=== PATIENT | male | born 1955 | race Hispanic/Latino ===

== ENCOUNTER 2019-07-19 16:30 | Inpatient (IN) | payer MEDICAID, OTHER ==
[~2019-07-19] VITALS: Ht 167.6 cm; Wt 45.7 kg
[2019-07-19 17:27] LABS: BASOPHILS % (AUTO) 0.1 % (0.0-5.0); HEMATOCRIT 29.5 % (42-54); LYMPHOCYTES % (AUTO) 7.7 % (21.0-51.0); MEAN CORPUSCULAR HEMOGLOBIN 29.9 pg (27.0-33.0); MEAN CORPUSCULAR HGB CONC 31.2 g/dL (32.0-36.0); MEAN CORPUSCULAR VOLUME 95.8 fL (79-99); MONOCYTES % (AUTO) 2.9 % (3.0-13.0); NEUTROPHILS % (AUTO) 88.3 % (40.0-77.0); PLATELET COUNT (AUTO) 175 K/uL (130-400); RED BLOOD CELL COUNT(AUTO) 3.08 MIL/uL (4.50-6.20); RED CELL DISTRIBUTION WIDTH 17.2 % (11.0-15.5); WHITE BLOOD COUNT (AUTO) 14.1 K/uL (4.8-10.8)
[2019-07-19 17:38] LABS: CREATININE 1.9 mg/dL (0.5-1.5); POTASSIUM 3.5 mmol/L (3.5-5.1)
[2019-07-19 17:39] LABS: INR 0.99 (0.85-1.15); PARTIAL THROMBOPLASTIN TIME 32.5 SEC (26.3-35.5); PROTHROMBIN TIME 10.7 SEC (9.6-11.6)
[2019-07-19 18:01] LABS: ALBUMIN 1.7 g/dL (3.5-5.0); BILIRUBIN,TOTAL 1.4 mg/dL (0.2-1.0); TOTAL PROTEIN, SERUM 6.8 g/dL (6.0-8.3)
[2019-07-19 18:12] LABS: B-TYPE NATRIURETIC PEPTIDE 153 pg/mL (0-100)
[2019-07-19 18:17] LABS: CRP QUANTITATIVE 455.7 mg/L (0.00-9.0)
[2019-07-19] MEDS ORDERED: LEVOFLOXACIN 500 MG/D5W 100 ML 100 ML ONE (18:19)
[2019-07-19] MEDS ORDERED: ZOSYN 3.375GM+NS 50ML 50 ML IV ONE (18:19)
[2019-07-19 19:01] LABS: APPEARANCE,URINE CLOUDY (CLEAR); BILIRUBIN,URINE SMALL (NEGATIVE); COLOR,URINE YELLOW (YELLOW); GLUCOSE, URINE (UA) NEGATIVE (NEGATIVE); KETONES,URINE NEGATIVE (NEGATIVE); LEUKOCYTE ESTERASE ,URINE MODERATE (NEGATIVE); NITRATE,URINE NEGATIVE (NEGATIVE); OCCULT BLOOD,URINE MODERATE (NEGATIVE); PH,URINE 6.5 (5.0-8.0); PROTEIN,URINE 30 mg/dL (NEGATIVE)
[2019-07-19 19:16] LABS: ERYTHROCYTE SEDIMENTATION RATE 140 MM/HR (0-20)
[2019-07-19 19:50] LABS: BACTERIA,URINE Moderate /HPF (None Seen); SQUAMOUS EPITHELIAL CELL,UR Rare /HPF (0-2)
[2019-07-19] MEDS ORDERED: HYDROMORPHONE 1 MG/1 ML AMP IV PRN (22:45)
[2019-07-19] MEDS ORDERED: ACETAMINOPHEN 325 MG TAB PO PRN (22:45)
[2019-07-19] MEDS ORDERED: ONDANSETRON HCL 4 MG/2 ML VIAL IV PRN (22:45)
[2019-07-19 23:18] LABS: % IRON SATURATION 9.4 % (30-44)
[2019-07-19 23:20] LABS: HEMOGLOBIN A1C 4.5 % (4.0-6.0)
[2019-07-20] MEDS ORDERED: ZOSYN 3.375GM+NS 50ML 50 ML IV ONE (01:32)
[2019-07-20] MEDS ORDERED: ZOSYN 3.375GM+NS 50ML 50 ML IV SCH (03:00)
[2019-07-20 03:38] VITALS: BP 128/73
[2019-07-20] MEDS: SODIUM CHLORIDE 0.9% 1000ML 1,000 ML IV SCH ×2 (03:45→08:10)
[2019-07-20 05:42] LABS: BASOPHILS % (AUTO) 0.1 % (0.0-5.0); HEMATOCRIT 24.7 % (42-54); LYMPHOCYTES % (AUTO) 4.8 % (21.0-51.0); MEAN CORPUSCULAR HEMOGLOBIN 29.8 pg (27.0-33.0); MEAN CORPUSCULAR VOLUME 99.6 fL (79-99); NEUTROPHILS % (AUTO) 91.9 % (40.0-77.0); PLATELET COUNT (AUTO) 139 K/uL (130-400); RED BLOOD CELL COUNT(AUTO) 2.48 MIL/uL (4.50-6.20); RED CELL DISTRIBUTION WIDTH 17.2 % (11.0-15.5); WHITE BLOOD COUNT (AUTO) 15.5 K/uL (4.8-10.8)
[2019-07-20 06:06] LABS: ALBUMIN 1.5 g/dL (3.5-5.0); BILIRUBIN,TOTAL 0.9 mg/dL (0.2-1.0); CREATININE 1.2 mg/dL (0.5-1.5); TOTAL PROTEIN, SERUM 5.9 g/dL (6.0-8.3)
[2019-07-20 06:13] LABS: POTASSIUM 2.9 mmol/L (3.5-5.1)
[2019-07-20 06:35] LABS: CRP QUANTITATIVE 471.6 mg/L (0.00-9.0)
[2019-07-20 08:00] VITALS: BP 119/69
[2019-07-20] MEDS: FAMOTIDINE/PF 20 MG/2 ML VIAL IV SCH (08:09)
--- NOTE | 2019-07-20 09:45 | NUR ---
DYSPHAGIA EVAL COMPLETED. NO S/S OF ASPIRATION. RECOMMEND PUREED, THIN LIQUIDS, PILLS ONE AT A TIME WITH LIQUIDS. Pt DOWNGRADED TO PUREED DUE TO MILD ORAL DYSPHAGIA AND INCREASED MASTICATION TIME. COMPENSATORY STRATEGIES TO FOLLOW: SIT UPRIGHT & SLOW AND SMALL SIPS. PERENNIAL HOUSE MANAGER COORDINATED CARE AND RECOMMENDATIONS WITH NURSE NILA. Addendum: 07/20/[address] SLADE DIAZ Amended: Links added.
[2019-07-20] MEDS ORDERED: EPOETIN ALFA 10,000 UNIT/ML VIAL SQ SCH (10:45)
[2019-07-20 11:38] VITALS: BP 114/65
[2019-07-20] MEDS: LEVOFLOXACIN 750 MG/D5W 150 ML 150 ML IV SCH (11:44)
[2019-07-20] MEDS: IRON SUCROSE COMPLEX 100 MG in SODIUM CHLORIDE 0.9% 50 ML IV SCH (11:44)
[2019-07-20] MEDS: POTASSIUM CHLORIDE 20 MEQ ERTAB PO SCH (11:45)
[2019-07-20] MEDS: 1/2 NORMAL SALINE IV SCH (13:17)
[2019-07-20] MEDS: POTASSIUM CHLORIDE IV SCH (13:17)
[2019-07-20] MEDS: ZOSYN 3.375GM+NS 50ML 50 ML IV SCH ×2 (13:18→21:30)
--- NOTE | 2019-07-20 13:23 | NUR ---
RD NOTIFICATION Pt admitted with Sepsis. BMI 14.0. Heart Healthy, Pureed diet in place. Recommend Ensure TID Recommend 60mL ProMod BID secondary to increased protein needs d/t weight loss and wound healing. Recommend 500mg Vitamin C, 220 mg ZnSO4 QD for wound healing support. Recommend Thiamine secondary to Hx of alcoholism. RD to continue to monitor. Please notify as additional nutrition concerns arise. Thank you. Addendum: 07/20/19 at [address] Amended: Links added.
[2019-07-20] MEDS: ZINC SULFATE 220 CAPSULE PO SCH (14:44)
[2019-07-20] MEDS: ERGOCALCIFEROL (VITAMIN D2) 50,000 UNIT CAPSULE PO SCH (14:44)
[2019-07-20] MEDS: FOLIC ACID/VITAMIN B COMP W-C 1 CAP TAB PO SCH (14:44)
[2019-07-20] MEDS: THIAMINE HCL 100 MG TABLET PO SCH (14:44)
[2019-07-20 15:40] VITALS: BP 113/61
--- NOTE | 2019-07-20 16:10 | NUR ---
[facility] consult Patient assessed as requested. Recommendations submitted and report given to patient's nurse. Addendum: 07/20/19 at 1610 by RENNY TOLLIVER LVN Amended: Links added.
[2019-07-20] MEDS ORDERED: VANCOMYCIN PROTOCOL PER PHARMACY IV SCH (16:15)
[2019-07-20] MEDS ORDERED: VANCOMYCIN 1GM+NS 250ML 250 ML IV ONE (16:30)
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
--- NOTE | 2019-07-20 16:42 | NUR ---
TNP CM spoke to pt's daughter Aliyah Lizarraga . As per daughter pt is assist with ADL's prior to admission, lives at home alone. Pt has a provider 2hrs/day younger aged uncle is pt's provider. Denies any equipments/other services. Pt has hard of hearing. Daughter verbalized all his personal info and wallet is with his sister Elvie Rubi for insurance and ss#. Informed daughter of POC, currently pending culture results. Pt agreeable for SNF placement if necessary, telephone consent KRISTINA signed for any SNF close to [facility]. Daughter Aliyah and aunt able to assist with transportation and needs as necessary. Spoke to pt's sister Elvie, verbalized pt ss#[id number] and has [employer] insurance MemberID#[id number]. As per Edda DOVER pt does not have current APS open. Financial counselor and Carlos pollock/HEDY given update. DC plan to home vs SNF. CM to cont to follow up. Addendum: 07/20/19 at 1651 by ROBERTH TOUSSAINT LVN CM Amended: Links added.
[2019-07-20 17:14] LABS: CREATININE 0.9 mg/dL (0.5-1.5)
[2019-07-20 17:18] LABS: POTASSIUM 2.6 mmol/L (3.5-5.1)
--- NOTE | 2019-07-20 19:45 | NUR ---
CONSENT PATIENT UNABLE TO SIGN CONSENT FOR PICC PLACEMENT. SPOKE TO JENN PRUITT JR. 2 NURSE CONSENT WAS OBTAINED VIA TELEPHONE. SECOND NURSE IS NATASHA BUSTOS.
[2019-07-20 19:52] VITALS: BP 107/62
[2019-07-20] MEDS ORDERED: HONEY 1 APPL/ML TUBE TP SCH (20:00)
[2019-07-20 23:59] VITALS: BP 107/59
[2019-07-21] MEDS: HYDROMORPHONE 1 MG/1 ML AMP IVP PRN ×2 (00:42→00:46)
--- NOTE | 2019-07-21 01:00 | NUR ---
PATIENT AWAKE. VERY HARD TO UNDERSTAND. SPEECH GARBLED. NO SIGN OF DISTRESS NOTED. PATIENT DRANK HALF OF ENSURE BOTTLE. WOUND CARE COMPLETE PER ORDERS. TOLERATING IV ANTIBIOTICS. HAD 1 TARRY COLORED BM. PATIENT INCONTINENT OF BOWEL AND BLADDER. WILLIAM IN PLACE DRAINING DARK YELLOW URINE.
[2019-07-21 03:40] LABS: BASOPHILS % (AUTO) 0.2 % (0.0-5.0); LYMPHOCYTES % (AUTO) 6.1 % (21.0-51.0); MEAN CORPUSCULAR HGB CONC 29.8 g/dL (32.0-36.0); MEAN CORPUSCULAR VOLUME 100.5 fL (79-99); MONOCYTES % (AUTO) 1.6 % (3.0-13.0); NEUTROPHILS % (AUTO) 90.8 % (40.0-77.0); PLATELET COUNT (AUTO) 129 K/uL (130-400); RED BLOOD CELL COUNT(AUTO) 2.07 MIL/uL (4.50-6.20); RED CELL DISTRIBUTION WIDTH 17.4 % (11.0-15.5); WHITE BLOOD COUNT (AUTO) 12.8 K/uL (4.8-10.8)
[2019-07-21 03:55] LABS: HEMATOCRIT 20.8 % (42-54)
[2019-07-21] MEDS: ZOSYN 3.375GM+NS 50ML 50 ML IV SCH ×3 (04:02→20:29)
[2019-07-21 04:08] VITALS: BP 95/53
[2019-07-21 04:12] LABS: ALBUMIN 1.2 g/dL (3.5-5.0); BILIRUBIN,TOTAL 0.6 mg/dL (0.2-1.0); CREATININE 0.9 mg/dL (0.5-1.5); MAGNESIUM 2.4 mg/dL (1.80-2.40); PHOSPHORUS 2.4 mg/dL (2.5-4.9); POTASSIUM 3.6 mmol/L (3.5-5.1); TOTAL PROTEIN, SERUM 5.4 g/dL (6.0-8.3)
--- NOTE | 2019-07-21 05:27 | NUR ---
spoke to Joseline Orellana about HG of 6.2. Per Belt Measurer repeat labs, transfuse 1 unit if <7.0
[2019-07-21] MEDS ORDERED: VANCOMYCIN 500MG+NS 100ML 100 ML IV SCH (06:00)
[2019-07-21] MEDS ORDERED: SODIUM CHLORIDE 0.9% 250 ML IV ONE (07:28)
[2019-07-21 07:30] VITALS: BP 94/42
[2019-07-21 08:34] LABS: INR 0.97 (0.85-1.15); PROTHROMBIN TIME 10.5 SEC (9.6-11.6)
[2019-07-21] MEDS: IRON SUCROSE COMPLEX 100 MG in SODIUM CHLORIDE 0.9% 50 ML IV SCH (09:00)
[2019-07-21] MEDS ORDERED: ASCORBIC ACID 500 MG TAB PO SCH (09:00)
[2019-07-21] MEDS ORDERED: ZINC SULFATE 220 CAPSULE PO SCH (09:00)
--- NOTE | 2019-07-21 09:15 | NUR ---
FOLLOW UP COMPLETED. Pt TOLERATING DIET RECOMMENDATIONS. Pt WAS BUSY THIS MORNING GETTING A PICC LINE. MASONRY CONTRACTOR ADMINISTRATOR COORDINATED WITH NURSE SHELLIE. Addendum: 07/21/[address] SLADE DIAZ Amended: Links added.
[2019-07-21] MEDS: POTASSIUM CHLORIDE 20 MEQ ERTAB PO SCH (10:45)
[2019-07-21 11:00] VITALS: BP 122/59
[2019-07-21] MEDS: ASCORBIC ACID 500 MG TAB PO SCH (11:34)
[2019-07-21] MEDS: FOLIC ACID/VITAMIN B COMP W-C 1 CAP TAB PO SCH (11:34)
[2019-07-21] MEDS: ZINC SULFATE 220 CAPSULE PO SCH (11:34)
[2019-07-21] MEDS: THIAMINE HCL 100 MG TABLET PO SCH (11:34)
[2019-07-21] MEDS: FAMOTIDINE/PF 20 MG/2 ML VIAL IV SCH (11:34)
[2019-07-21] MEDS: LEVOFLOXACIN 750 MG/D5W 150 ML 150 ML IV SCH (11:34)
[2019-07-21] MEDS ORDERED: COMPOUND IV MISC 1 EACH IVSOLN MISC PRN (12:15)
[2019-07-21] MEDS: POTASSIUM CHLORIDE IV SCH (12:33)
[2019-07-21] MEDS: 1/2 NORMAL SALINE IV SCH (12:33)
[2019-07-21 16:00] VITALS: BP 126/72
[2019-07-21 19:50] VITALS: BP 153/71
[2019-07-21] MEDS: POTASSIUM CHLORIDE 20 MEQ in DEXTROSE 5%-WATER 1,000 ML IV SCH (20:29)
[2019-07-22 00:29] VITALS: BP 147/70
--- NOTE | 2019-07-22 02:00 | NUR ---
PATIENT UPDATE Patient received as a transfer from 4th floor/ 405 to assume care of patient, level of care downgraded to med tele from pccu status. Report received from Zenia Nunez RN at 0120. Patient admitted with multiple ulcerations in the left hip and left buttock, on a special mattress. Oriented x 1, cachectic looking, bedbound.
[2019-07-22 04:00] VITALS: BP 149/61
[2019-07-22] MEDS: HONEY 1 APPL/ML TUBE TP SCH (05:00)
[2019-07-22] MEDS: ZOSYN 3.375GM+NS 50ML 50 ML IV SCH ×3 (05:07→20:29)
[2019-07-22 05:45] LABS: HEMATOCRIT 29.3 % (42-54); LYMPHOCYTES % (AUTO) 7.2 % (21.0-51.0); MEAN CORPUSCULAR HEMOGLOBIN 30.4 pg (27.0-33.0); MEAN CORPUSCULAR HGB CONC 31.4 g/dL (32.0-36.0); MEAN CORPUSCULAR VOLUME 96.7 fL (79-99); MONOCYTES % (AUTO) 1.7 % (3.0-13.0); NEUTROPHILS % (AUTO) 90.1 % (40.0-77.0); NUCLEATED RED BLOOD CELLS 0.2 % (0.0-0.19); PLATELET COUNT (AUTO) 155 K/uL (130-400); RED BLOOD CELL COUNT(AUTO) 3.03 MIL/uL (4.50-6.20); RED CELL DISTRIBUTION WIDTH 17.2 % (11.0-15.5); WHITE BLOOD COUNT (AUTO) 9.2 K/uL (4.8-10.8)
[2019-07-22 06:04] LABS: INR 0.99 (0.85-1.15); PARTIAL THROMBOPLASTIN TIME 36.4 SEC (26.3-35.5); PROTHROMBIN TIME 10.7 SEC (9.6-11.6)
[2019-07-22 06:29] LABS: ALBUMIN 1.4 g/dL (3.5-5.0); BILIRUBIN,TOTAL 1.1 mg/dL (0.2-1.0); CREATININE 0.7 mg/dL (0.5-1.5); MAGNESIUM 1.8 mg/dL (1.80-2.40); POTASSIUM 3.3 mmol/L (3.5-5.1); THYROID STIMULATING HORMONE 3.83 uIU/mL (0.36-3.74); TOTAL PROTEIN, SERUM 5.7 g/dL (6.0-8.3)
[2019-07-22 07:30] VITALS: BP 123/49
--- NOTE | 2019-07-22 08:00 | NUR ---
am shift assessment.
[2019-07-22] MEDS: DRONABINOL 2.5 MG CAP PO SCH (09:00)
[2019-07-22] MEDS: POTASSIUM CHLORIDE 20 MEQ in DEXTROSE 5%-WATER 1,000 ML IV SCH ×2 (09:00→20:30)
[2019-07-22 09:30] LABS: CRP QUANTITATIVE 238.6 mg/L (0.00-9.0)
[2019-07-22] MEDS: FERROUS SULFATE 325 MG TABLET.DR PO SCH ×2 (09:59→20:29)
[2019-07-22] MEDS: FOLIC ACID/VITAMIN B COMP W-C 1 CAP TAB PO SCH (09:59)
[2019-07-22] MEDS: ZINC SULFATE 220 CAPSULE PO SCH (09:59)
[2019-07-22] MEDS: FAMOTIDINE/PF 20 MG/2 ML VIAL IV SCH (09:59)
[2019-07-22] MEDS: THIAMINE HCL 100 MG TABLET PO SCH (10:00)
[2019-07-22] MEDS: ASCORBIC ACID 500 MG TAB PO SCH (10:00)
--- NOTE | 2019-07-22 10:00 | NUR ---
SON CALLED AND ASKING ABOUT SNF PLACEMENT. STATES PT. LIVES ALONE AND UNABLE TO SELF CARE. HAS PROVIDER SERVICES FOR 2 HRS. BUT IS NOT ENOUGH.
[2019-07-22] MEDS: IRON SUCROSE COMPLEX 100 MG in SODIUM CHLORIDE 0.9% 50 ML IV SCH (10:01)
[2019-07-22] MEDS: POTASSIUM CHLORIDE 20 MEQ ERTAB PO SCH (10:45)
[2019-07-22 11:00] VITALS: BP 115/51
[2019-07-22 16:00] VITALS: BP 118/50
--- NOTE | 2019-07-22 16:00 | NUR ---
TO RAD. DEPT FOR HEAD CT.
[2019-07-22 20:13] VITALS: BP 125/87
--- NOTE | 2019-07-22 22:00 | NUR ---
WOUND ASSESSMENT ADDENDUM HEALING/DRY LESION TO LEFT MEDIAL ASPECT ,KNEE MEASURES 1.5 X.5 CM SCAB FORMATION,CLEANSED WITH STERILE NS AND COVERED WITH BANDAID ADHESIVE Addendum: 07/23/19 at 0248 by GISELA SAWANT RN RN Amended: Links added.
[2019-07-23] VITALS: BP 112/61
--- NOTE | 2019-07-23 03:50 | NUR ---
WOUND CARE PT WITH BM, DRESSING TO WOUND SACRO-COCCYGEAL AREA SOILED,CHANGED ,CLEANSED WITH STERILE NS ,MEDIHONEY APPLIED ,TOPPED WITH ALLEVYN FOAM DRESSING, NO WEEPING OR BLEEDING NOTED ,TOLERATED WELL.NO CHANGE IN STATUS OF WOUND Addendum: 07/23/19 at 0353 by GISELA SAWANT RN RN Amended: Links added.
[2019-07-23 04:00] VITALS: BP 101/51
[2019-07-23] MEDS: HONEY 1 APPL/ML TUBE TP SCH (04:17)
[2019-07-23] MEDS: ZOSYN 3.375GM+NS 50ML 50 ML IV SCH ×3 (04:31→22:14)
[2019-07-23 06:16] LABS: EOSINOPHILS % (AUTO) 0.1 % (0.0-8.0); HEMATOCRIT 23.6 % (42-54); LYMPHOCYTES % (AUTO) 9.5 % (21.0-51.0); MEAN CORPUSCULAR HEMOGLOBIN 30.5 pg (27.0-33.0); MEAN CORPUSCULAR HGB CONC 32.2 g/dL (32.0-36.0); MEAN CORPUSCULAR VOLUME 94.8 fL (79-99); MONOCYTES % (AUTO) 2.8 % (3.0-13.0); NEUTROPHILS % (AUTO) 86.6 % (40.0-77.0); PLATELET COUNT (AUTO) 118 K/uL (130-400); RED BLOOD CELL COUNT(AUTO) 2.49 MIL/uL (4.50-6.20); RED CELL DISTRIBUTION WIDTH 17.1 % (11.0-15.5); WHITE BLOOD COUNT (AUTO) 7.9 K/uL (4.8-10.8)
[2019-07-23 06:27] LABS: CREATININE 0.7 mg/dL (0.5-1.5); MAGNESIUM 1.7 mg/dL (1.80-2.40)
[2019-07-23 06:42] LABS: POTASSIUM 2.9 mmol/L (3.5-5.1)
[2019-07-23] MEDS ORDERED: POTASSIUM CHLORIDE 20MEQ/100ML 100 ML IV ONE (06:43)
[2019-07-23] MEDS ORDERED: MAGNESIUM 2GM PREMIX 50ML 50 ML IV ONE (06:46)
[2019-07-23] MEDS ORDERED: LIDOCAINE HCL-MPF 1% 2ML VIAL IV PRN (07:00)
[2019-07-23 07:30] VITALS: BP 132/71
[2019-07-23] MEDS: POTASSIUM CHLORIDE 20MEQ/100ML 100 ML IV PRN (08:00)
[2019-07-23] MEDS ORDERED: POTASSIUM CHLORIDE 20 MEQ ERTAB PO SCH (08:15)
[2019-07-23] MEDS: FOLIC ACID/VITAMIN B COMP W-C 1 CAP TAB PO SCH (09:28)
[2019-07-23] MEDS: FERROUS SULFATE 325 MG TABLET.DR PO SCH ×2 (09:28→22:14)
[2019-07-23] MEDS: ZINC SULFATE 220 CAPSULE PO SCH (09:29)
[2019-07-23] MEDS: DRONABINOL 2.5 MG CAP PO SCH (09:29)
[2019-07-23] MEDS: ASCORBIC ACID 500 MG TAB PO SCH (09:29)
[2019-07-23] MEDS: THIAMINE HCL 100 MG TABLET PO SCH (09:29)
[2019-07-23] MEDS: POTASSIUM CHLORIDE 20 MEQ ERTAB PO SCH (09:29)
[2019-07-23] MEDS: FAMOTIDINE/PF 20 MG/2 ML VIAL IV SCH (09:29)
[2019-07-23] MEDS: IRON SUCROSE COMPLEX 100 MG in SODIUM CHLORIDE 0.9% 50 ML IV SCH (09:32)
[2019-07-23 11:00] VITALS: BP 101/51
[2019-07-23 16:00] VITALS: BP 128/63
[2019-07-23 20:00] VITALS: BP 113/58
[2019-07-24] VITALS (7 sets, daily range): BP systolic 94–127; BP diastolic 48–59
--- NOTE | 2019-07-24 04:48 | NUR ---
PAGED BOBBIN DRIER D/T ASYMPTOMATIC HYPOTENSIVE BP OF 94/48 HR 110, AND ON 15 MIN RECHECK OF 91/48 HR 102. ISAAC DENNEY SAID TO CONTINUE MONITORING THE PT, IF PT BECOMES SYMPTOMATIC TO CALL BACK. WILL CONTINUE TO MONITOR ORDERED. PT ASLEEP, NO VISIBLE S/S OF DISTRESS NOTED. PERIPHERAL PULSES, STRONG, PALPABLE. SKIN WARM TO TOUCH. ORAL TEMP OF 98.5.
[2019-07-24] MEDS: HONEY 1 APPL/ML TUBE TP SCH (05:00)
[2019-07-24] MEDS: ZOSYN 3.375GM+NS 50ML 50 ML IV SCH ×3 (05:02→20:33)
--- NOTE | 2019-07-24 06:00 | NUR ---
WOUND CARE PROVIDED WOUND CARE INSTRUCTED ON WC ORDERS. LEFT HIP AND BUTTOCK CLEANSED WITH SALINE, APPLIED MEDIHONEY AND COVERED WITH ALLEVYN FOAM. BILAT HEELS CHANGED ALLEVYN FOAM AND OFFLOADED HEELS WITH PILLOWS. RIGHT HIP BLISTER BEGAN TO OOZE SEROSANGUINEOUS DRAINAGE, CLEANSED SITE WITH NS AND APPLIED ALLEVYN FOAM. PT ERENDIRA DRESSING CHANGES WELL.
[2019-07-24 06:13] LABS: BASOPHILS % (AUTO) 0.2 % (0.0-5.0); EOSINOPHILS % (AUTO) 0.2 % (0.0-8.0); HEMATOCRIT 22.2 % (42-54); LYMPHOCYTES % (AUTO) 11.7 % (21.0-51.0); MEAN CORPUSCULAR HEMOGLOBIN 30.6 pg (27.0-33.0); MEAN CORPUSCULAR VOLUME 95.7 fL (79-99); MONOCYTES % (AUTO) 3.9 % (3.0-13.0); NEUTROPHILS % (AUTO) 81.9 % (40.0-77.0); NUCLEATED RED BLOOD CELLS 0.3 % (0.0-0.19); PLATELET COUNT (AUTO) 111 K/uL (130-400); RED BLOOD CELL COUNT(AUTO) 2.32 MIL/uL (4.50-6.20); WHITE BLOOD COUNT (AUTO) 6.7 K/uL (4.8-10.8)
[2019-07-24 06:42] LABS: ALBUMIN 1.1 g/dL (3.5-5.0); BILIRUBIN,TOTAL 0.6 mg/dL (0.2-1.0); CREATININE 0.7 mg/dL (0.5-1.5); POTASSIUM 3.6 mmol/L (3.5-5.1)
[2019-07-24] MEDS: ZINC SULFATE 220 CAPSULE PO SCH (09:21)
[2019-07-24] MEDS: IRON SUCROSE COMPLEX 100 MG in SODIUM CHLORIDE 0.9% 50 ML IV SCH (09:22)
[2019-07-24] MEDS: FAMOTIDINE/PF 20 MG/2 ML VIAL IV SCH (09:22)
[2019-07-24] MEDS: ASCORBIC ACID 500 MG TAB PO SCH (09:22)
[2019-07-24] MEDS: FERROUS SULFATE 325 MG TABLET.DR PO SCH ×2 (09:22→20:33)
[2019-07-24] MEDS: THIAMINE HCL 100 MG TABLET PO SCH (09:22)
[2019-07-24] MEDS: FOLIC ACID/VITAMIN B COMP W-C 1 CAP TAB PO SCH (09:22)
--- NOTE | 2019-07-24 10:08 | NUR ---
APS Tessy recd call from Cami Camargo, [phone], APS [employer]. Sw answered all questions asked. Casewker to get case assigned to someone in [facility] since that is where pt lives.
[2019-07-24] MEDS: POTASSIUM CHLORIDE 20 MEQ ERTAB PO SCH (10:45)
[2019-07-24] MEDS: DRONABINOL 2.5 MG CAP PO SCH ×2 (12:09→16:45)
--- NOTE | 2019-07-24 13:52 | NUR ---
APS f/u Sw recd call from Sidra Christopher [phone], APS erma. APS requesting more information and family contacts. Sw provided information requested. Sidra to contact family for dcp and contact JORGE Saleh as well.
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
--- NOTE | 2019-07-24 20:35 | NUR ---
MEDS PT IS UNABLE TO AWAKEN TO TAKE HIS MEDS. PT MOANS WHEN TRIED TO AWAKEN BUT GOES RIGHT BACK TO SLEEP. NO OTHER UNTOWARD S/SX NOTED. SHIFT ASSESSMENT DONE, PLEASE REFER TO CHART. WILL MONITOR PT CLOSELY. Addendum: 07/24/19 at 2245 by EDILBERTO WASSERMAN RN RN Amended: Links added.
[2019-07-24] MEDS: POTASSIUM CHLORIDE 20MEQ/100ML 100 ML IV PRN (23:02)
[2019-07-25] VITALS (7 sets, daily range): BP systolic 91–119; BP diastolic 47–77
--- NOTE | 2019-07-25 02:00 | NUR ---
ROUNDS PT FAIRLY ASLEEP WITH RESPIRATIONS EVEN AND UNLABORED. NO NOTED DISTRESS. KEPT COMFORTABLE AND RESTED. WILL MONITOR PT.
[2019-07-25] MEDS: ZOSYN 3.375GM+NS 50ML 50 ML IV SCH ×3 (04:11→20:18)
[2019-07-25] MEDS: HONEY 1 APPL/ML TUBE TP SCH (04:57)
[2019-07-25 05:21] LABS: BASOPHILS % (AUTO) 0.1 % (0.0-5.0); EOSINOPHILS % (AUTO) 0.9 % (0.0-8.0); HEMATOCRIT 22.5 % (42-54); LYMPHOCYTES % (AUTO) 14.7 % (21.0-51.0); MEAN CORPUSCULAR HEMOGLOBIN 29.9 pg (27.0-33.0); MEAN CORPUSCULAR HGB CONC 31.1 g/dL (32.0-36.0); MEAN CORPUSCULAR VOLUME 96.2 fL (79-99); MONOCYTES % (AUTO) 3.3 % (3.0-13.0); NEUTROPHILS % (AUTO) 80.4 % (40.0-77.0); PLATELET COUNT (AUTO) 126 K/uL (130-400); RED BLOOD CELL COUNT(AUTO) 2.34 MIL/uL (4.50-6.20); RED CELL DISTRIBUTION WIDTH 17.1 % (11.0-15.5)
--- NOTE | 2019-07-25 05:31 | NUR ---
VISITING NURSE LAB CALLED CRITICAL RESULT OF HEMOGLOBIN AT 7. PAGED AJ, VISITING NURSE WAIT STAFF FOR HOSPITALIST, VIA ANSWERING SERVICE. VISITING NURSE CALLED BACK AND REFERRED PT'S H/H LEVELS. NEW ORDERS GIVEN, PLEASE REFER TO CPOE.
[2019-07-25 05:35] LABS: CREATININE 0.6 mg/dL (0.5-1.5); POTASSIUM 3.4 mmol/L (3.5-5.1)
[2019-07-25] MEDS: POTASSIUM CHLORIDE 20MEQ/100ML 100 ML IV PRN (05:54)
[2019-07-25] MEDS: IRON SUCROSE COMPLEX 100 MG in SODIUM CHLORIDE 0.9% 50 ML IV SCH (09:32)
[2019-07-25] MEDS: ZINC SULFATE 220 CAPSULE PO SCH (09:33)
[2019-07-25] MEDS: FOLIC ACID/VITAMIN B COMP W-C 1 CAP TAB PO SCH (09:33)
[2019-07-25] MEDS: FERROUS SULFATE 325 MG TABLET.DR PO SCH ×2 (09:33→20:18)
[2019-07-25] MEDS: DRONABINOL 2.5 MG CAP PO SCH (09:33)
[2019-07-25] MEDS: ASCORBIC ACID 500 MG TAB PO SCH (09:33)
[2019-07-25] MEDS: THIAMINE HCL 100 MG TABLET PO SCH (09:33)
[2019-07-25] MEDS: FAMOTIDINE/PF 20 MG/2 ML VIAL IV SCH (09:34)
--- NOTE | 2019-07-25 15:52 | NUR ---
APS f/u Sw left message for APS carlosphilllena Valente Chap [phone]. Informed of pt being out of SNF days, per CM only option is home with HH at this time. Left CM contact # for APS to follow up regarding APS and family dcp.
--- NOTE | 2019-07-25 17:01 | NUR ---
Nutrition Follow-up: Pt. on Heart healthy Pureed diet, Ensure TID, 60ml ProMod BID. Pt. reports prefers chocolate flavor Ensure. Pt. with 0-25% p.o. intake, as noted in EMR. Pt. on appetite stimulant Marinol. Labs reviewed(Alb 1.1). SR-14, stg 4 ulcer to sacrum/left buttock, left heel ulcer and right foot ulcer. LBM: 07/24/2019, loose. Recommendations: 1) Continue current nutrition support. 2) Continue appetite stimulant Marinol. 3) Continue to monitor pt's nutritional status. 4) Consult RD as nutrition concerns arise. Addendum: 07/25/19 at [address] Amended: Links added.
--- NOTE | 2019-07-25 17:55 | NUR ---
CM NOTE/DC PLAN/DAUGHTER CALLED PER AKIN AT [phone] AT [facility], SNF IS NOT IN PATIENTS BENEFITS AND OPTIONS ARE HH FOR PT/NURSING CARE OR OUTPATIENT PT. AKIN MADE AWARE OF NEED FOR IV ZOSYN X14 DAYS. PER AKIN, [facility] IN [place] IS AN OPTION. SHE WILL FAX ME HH IN NETWORK FOR PATIENT. CM TO FOLLOW UP. DAUGHTER, HEVER PRUITT [phone], CALLED TO INFORM OF SNF NOT IN NETWORK (JED GRAY/DR BOWER AWARE THIS AM) AND PLAN IF FOR HOME WITH HH, NO ANSWER, VOICEMAIL LEFT. PENDING KRISTINA. CM TO FOLLOW UP. PENDING FAX FROM AKIN FOR HH IN NETWORK IN [facility] SINCE THAT IS WHERE PATIENT IS FROM.
--- NOTE | 2019-07-25 20:20 | NUR ---
MEDS SHIFT ASSESSMENT DONE, PLEASE REFER TO CHART. RE-POSITIONED IN BED WITH HOB ELEVATED. DUE MEDS ADMINISTERED, TOLERATED WELL. PT'S DINNER STILL ON TRAY, ASKED PT IF HE WANTS TO EAT. PT FEED BUT ONLY ATE 25% OF DINNER. ENSURE GIVEN WELL. WILL MONITOR PT. CALL LIGHT WITHIN REACH. Addendum: 07/25/19 at 2224 by EDILBERTO WASSERMAN RN RN Amended: Links added.
--- NOTE | 2019-07-25 21:00 | NUR ---
BATHE PT HAD A BM AND PCP IN AND GAVE PT A BED BATH, TOLERATED ACTIVITY WELL. KEPT RESTED AND COMFORTABLE WITH HOB ELEVATED. WILL MONITOR PT.
--- NOTE | 2019-07-26 01:57 | NUR ---
ROUNDS PT RESTING WELL, FAIRLY ASLEEP WITH RESPIRATIONS EVEN AND UNLABORED. NO NOTED DISTRESS. KEPT UNDISTURBED FOR NOW. WILL MONITOR PT.
[2019-07-26 03:00] VITALS: BP 111/62
[2019-07-26] MEDS: ZOSYN 3.375GM+NS 50ML 50 ML IV SCH ×3 (03:46→20:33)
[2019-07-26] MEDS: HONEY 1 APPL/ML TUBE TP SCH (03:46)
[2019-07-26] MEDS: ACETAMINOPHEN 325 MG TAB PO PRN (03:46)
[2019-07-26 05:51] LABS: BASOPHILS % (AUTO) 0.2 % (0.0-5.0); EOSINOPHILS % (AUTO) 2.1 % (0.0-8.0); LYMPHOCYTES % (AUTO) 11.3 % (21.0-51.0); MEAN CORPUSCULAR HEMOGLOBIN 29.7 pg (27.0-33.0); MEAN CORPUSCULAR HGB CONC 30.6 g/dL (32.0-36.0); MEAN CORPUSCULAR VOLUME 97.3 fL (79-99); NEUTROPHILS % (AUTO) 81.8 % (40.0-77.0); PLATELET COUNT (AUTO) 164 K/uL (130-400); RED BLOOD CELL COUNT(AUTO) 1.85 MIL/uL (4.50-6.20); RED CELL DISTRIBUTION WIDTH 17.4 % (11.0-15.5); WHITE BLOOD COUNT (AUTO) 4.3 K/uL (4.8-10.8)
--- NOTE | 2019-07-26 05:57 | NUR ---
MIAH LEONARDO FROM LAB CALLED WITH CRITICAL VALUE OF H/H AT 5.5 AND 18. PT ALREADY HAVE A STANDING ORDER FOR BLOOD TRANSFUSION FOR HEMOGLOBIN<7. WILL INITIATE TRANSFUSION.
[2019-07-26 06:04] LABS: CREATININE 0.8 mg/dL (0.5-1.5); POTASSIUM 3.3 mmol/L (3.5-5.1)
--- NOTE | 2019-07-26 06:40 | NUR ---
PRBC V/S MONITORED, STABLE. CHECKED ONE UNIT OF PRBC WITH NATASHA STYLES. TRANSFUSION STARTED. WILL MONITOR CLOSELY.
--- NOTE | 2019-07-26 07:05 | NUR ---
RE-ASSESS MONITORED V/S, STABLE. PT TOLERATING BLOOD TRANSFUSION WELL. FOR MORE CARE AND MANAGEMENT.
[2019-07-26 07:58] VITALS: BP 103/51
[2019-07-26] MEDS: THIAMINE HCL 100 MG TABLET PO SCH (08:39)
[2019-07-26] MEDS: FAMOTIDINE/PF 20 MG/2 ML VIAL IV SCH (08:39)
[2019-07-26] MEDS: DRONABINOL 2.5 MG CAP PO SCH (08:39)
[2019-07-26] MEDS: IRON SUCROSE COMPLEX 100 MG in SODIUM CHLORIDE 0.9% 50 ML IV SCH (08:40)
[2019-07-26] MEDS: ASCORBIC ACID 500 MG TAB PO SCH (08:40)
[2019-07-26] MEDS: FOLIC ACID/VITAMIN B COMP W-C 1 CAP TAB PO SCH (08:40)
[2019-07-26] MEDS: ZINC SULFATE 220 CAPSULE PO SCH (08:40)
[2019-07-26] MEDS: FERROUS SULFATE 325 MG TABLET.DR PO SCH ×2 (08:40→20:33)
[2019-07-26] MEDS: POTASSIUM CHLORIDE 20MEQ/100ML 100 ML IV PRN ×2 (09:37→12:24)
--- NOTE | 2019-07-26 09:58 | NUR ---
UNIT OF PRBC COMPLETE, NO REACTION NOTED, VS STABLE.
[2019-07-26 11:29] VITALS: BP 118/55
[2019-07-26 12:01] LABS: HEMATOCRIT 30.1 % (42-54)
--- NOTE | 2019-07-26 16:00 | NUR ---
CM NOTE/DC PLAN PATIENTS HEMOGLOBIN AND HEMATOCRIT DROPPED, REQUIRING BLOOD TRANSFUSION. FAXED RECEIVED FROM INSURANCE FOR HH AVAILABLE AND IN NETWORK. PENDING NEW CONSULT WITH DR. NANCE FOR SACRAL ULCER RECOMMENDATIONS. DAUGHTER, HEVER PRUITT [phone], CALLED AND INFORMED OF DROP IN HEMOGLOBIN, TRANSFUSION, PLAN FOR HOME HEALTH. CM TO FOLLOW UP.
[2019-07-26 17:57] VITALS: BP 144/75
[2019-07-26 19:53] VITALS: BP 125/64
[2019-07-27] VITALS (7 sets, daily range): BP systolic 108–143; BP diastolic 54–69
--- NOTE | 2019-07-27 03:45 | NUR ---
DRESSING PATIENT BATHED, DRESSING CHANGED SACRAL AREA, SACRAL ULCER WITH NECROTIC TISSUE , CLEANSED WITH NS, DAB DRY, APPLY MEDIHONEY AND ALLEVYN PATCH, CHANGED DRESSINGS BILATERAL HIPS, BILATERAL HIPS WITH NECROTIC ULCERS WITH SLOUGHING OF TISSUE, CLEANSED WITH NS, DAB DRY, APPLY MEDIHONEY AND ALLEVYN PATCH TO BOTH HIPS, MULTIPLE ABRASIONS AND ULCERATIONS ON BACK BILATERAL EARS, BONY AREAS AROUND BOTH KNEES, APPLY MEDIHONEY, CHANGED DRESSING BOTH HEELS, BOTH HEELS NECROTIC WITH SLOUGHING OF TISSUE, APPLY MEDIHONEY AND ALLEVYN PATCH AND KERLIX ROLL TO BILATERAL HEELS,TOLERATED WELL, F/C TO GRAVITY DRAINAGE, NOTICED SMALL AMOUNT OF PURULENT DRAINAGE FROM MEATUS AROUND F/C, HOSPITALIST MADE AWARE YESTERDAY 07/26/19
[2019-07-27] MEDS: HONEY 1 APPL/ML TUBE TP SCH (03:47)
[2019-07-27] MEDS: ZOSYN 3.375GM+NS 50ML 50 ML IV SCH ×3 (04:15→20:25)
[2019-07-27 04:54] LABS: BASOPHILS % (AUTO) 0.1 % (0.0-5.0); EOSINOPHILS % (AUTO) 0.1 % (0.0-8.0); HEMATOCRIT 27.8 % (42-54); LYMPHOCYTES % (AUTO) 10.9 % (21.0-51.0); MEAN CORPUSCULAR HEMOGLOBIN 29.8 pg (27.0-33.0); MEAN CORPUSCULAR HGB CONC 31.7 g/dL (32.0-36.0); MEAN CORPUSCULAR VOLUME 94.2 fL (79-99); MONOCYTES % (AUTO) 3.5 % (3.0-13.0); NEUTROPHILS % (AUTO) 84.3 % (40.0-77.0); PLATELET COUNT (AUTO) 179 K/uL (130-400); RED BLOOD CELL COUNT(AUTO) 2.95 MIL/uL (4.50-6.20); RED CELL DISTRIBUTION WIDTH 17.9 % (11.0-15.5); WHITE BLOOD COUNT (AUTO) 8.6 K/uL (4.8-10.8)
[2019-07-27 05:06] LABS: CREATININE 0.7 mg/dL (0.5-1.5); POTASSIUM 3.5 mmol/L (3.5-5.1)
[2019-07-27] MEDS: POTASSIUM CHLORIDE 20MEQ/100ML 100 ML IV PRN (06:24)
[2019-07-27] MEDS: FOLIC ACID/VITAMIN B COMP W-C 1 CAP TAB PO SCH (10:03)
[2019-07-27] MEDS: ZINC SULFATE 220 CAPSULE PO SCH (10:03)
[2019-07-27] MEDS: ASCORBIC ACID 500 MG TAB PO SCH (10:03)
[2019-07-27] MEDS: FAMOTIDINE/PF 20 MG/2 ML VIAL IV SCH (10:03)
[2019-07-27] MEDS: THIAMINE HCL 100 MG TABLET PO SCH (10:03)
[2019-07-27] MEDS: FERROUS SULFATE 325 MG TABLET.DR PO SCH ×2 (10:03→20:26)
[2019-07-27] MEDS: DRONABINOL 2.5 MG CAP PO SCH (10:06)
[2019-07-27] MEDS: IRON SUCROSE COMPLEX 100 MG in SODIUM CHLORIDE 0.9% 50 ML IV SCH (10:58)
[2019-07-27] MEDS: ERGOCALCIFEROL (VITAMIN D2) 50,000 UNIT CAPSULE PO SCH (10:58)
--- NOTE | 2019-07-27 17:03 | NUR ---
DC [facility] CAN APPROVE FOR SKILLED NEED FOR COMPLEX WOUND CARE AND IV THERAPY WITH PHYSICAL THERAPY ADDED A SIDE BENEFIT. SAID TO RE PHRASE ORDER FOR FIRST TWO SKILLS. SAID SHE TRIED TO CALL DAUGHTER FOR KRISTINA TO [facility]. SAID SHE SPOKE TO RAFAL AT [facility] AND VERIFIED THAT THEY WILL TAKE MEDICAID. DAUGHTER HEVER PRUITT [phone] ANSWERED AFTER SEVERAL ATTEMPTS. SAID OKAY TO SEND TO [facility]. PACKET SENT. PENDING DEBRIDEMENT WITH DR. NANCE. TRIED TO GET CONSENT FROM PATIENT NOT ABLE TO APPEARS CONFUSED. Addendum: 07/27/19 at 1708 by RADHA JAUREGUI RN CM Amended: Links added.
[2019-07-27] MEDS: HYDROMORPHONE 1 MG/1 ML AMP IVP PRN ×2 (20:26→23:51)
[2019-07-28] MEDS: HYDROMORPHONE 1 MG/1 ML AMP IVP PRN (03:47)
[2019-07-28 04:00] VITALS: BP 111/63
[2019-07-28 04:37] LABS: BASOPHILS % (AUTO) 0.1 % (0.0-5.0); EOSINOPHILS % (AUTO) 0.4 % (0.0-8.0); HEMATOCRIT 24.8 % (42-54); LYMPHOCYTES % (AUTO) 11.4 % (21.0-51.0); MEAN CORPUSCULAR HEMOGLOBIN 29.4 pg (27.0-33.0); MEAN CORPUSCULAR HGB CONC 31.5 g/dL (32.0-36.0); MEAN CORPUSCULAR VOLUME 93.6 fL (79-99); MONOCYTES % (AUTO) 4.3 % (3.0-13.0); NEUTROPHILS % (AUTO) 82.7 % (40.0-77.0); PLATELET COUNT (AUTO) 191 K/uL (130-400); RED BLOOD CELL COUNT(AUTO) 2.65 MIL/uL (4.50-6.20); RED CELL DISTRIBUTION WIDTH 17.9 % (11.0-15.5); WHITE BLOOD COUNT (AUTO) 7.3 K/uL (4.8-10.8)
[2019-07-28] MEDS: ZOSYN 3.375GM+NS 50ML 50 ML IV SCH ×3 (04:48→20:44)
[2019-07-28] MEDS: HONEY 1 APPL/ML TUBE TP SCH (04:48)
[2019-07-28 04:53] LABS: CREATININE 0.6 mg/dL (0.5-1.5)
[2019-07-28 05:04] LABS: POTASSIUM 2.9 mmol/L (3.5-5.1)
[2019-07-28] MEDS: POTASSIUM CHLORIDE 20MEQ/100ML 100 ML IV PRN ×2 (05:14→15:56)
[2019-07-28 08:26] VITALS: BP 119/67
[2019-07-28] MEDS: FOLIC ACID/VITAMIN B COMP W-C 1 CAP TAB PO SCH (09:05)
[2019-07-28] MEDS: ASCORBIC ACID 500 MG TAB PO SCH (09:05)
[2019-07-28] MEDS: FERROUS SULFATE 325 MG TABLET.DR PO SCH ×2 (09:05→19:54)
[2019-07-28] MEDS: ZINC SULFATE 220 CAPSULE PO SCH (09:05)
[2019-07-28] MEDS: THIAMINE HCL 100 MG TABLET PO SCH (09:05)
[2019-07-28] MEDS: FAMOTIDINE/PF 20 MG/2 ML VIAL IV SCH (09:05)
[2019-07-28] MEDS: IRON SUCROSE COMPLEX 100 MG in SODIUM CHLORIDE 0.9% 50 ML IV SCH (09:06)
[2019-07-28] MEDS: DRONABINOL 2.5 MG CAP PO SCH (10:04)
[2019-07-28 11:21] VITALS: BP 118/57
[2019-07-28] MEDS: ACETAMINOPHEN 325 MG TAB PO PRN (12:14)
--- NOTE | 2019-07-28 15:19 | NUR ---
DC PLAN INFO SENT TO [facility]. SPOKE TO МАРИЯ ALREADY WORKING ON IT. NEW DEBRIDEMENT SCHEDULE IS FOR WEDNESDAY. LET FACILITY AND INSURANCE KNOW. SPOKE APS AND GAVE HER AN UPDATE WELL. Addendum: 07/28/19 at 1521 by RADHA JAUREGUI RN CM Amended: Links added.
--- NOTE | 2019-07-28 15:56 | NUR ---
RD FOLLOW UP Pt tolerating Heart Healthy Diet order, with nutritional supplements (Ensure + Promod). Pt with Necrotic sacrococcygeal ulcer, bilateral foot ulcers. BMI 18.8. Recommend Richard BID, 500mg Vitamin C QD, 220mg Zinc SO4 QD for wound healing support. RD to follow up with Wound Healing nutrition education. Nutrition education materials Placed in Pt chart d/t isolation protocol. RD attempt to provide nutrition education via phone, no answer. RD to follow up. Addendum: 07/28/19 at [address] Amended: Links added.
[2019-07-28 16:15] VITALS: BP 112/62
[2019-07-28] MEDS ORDERED: POTASSIUM CHLORIDE 20 MEQ ERTAB PO SCH (19:30)
[2019-07-28 19:40] VITALS: BP 103/58
[2019-07-29] VITALS (7 sets, daily range): BP systolic 107–160; BP diastolic 56–88
[2019-07-29] MEDS: ZOSYN 3.375GM+NS 50ML 50 ML IV SCH ×3 (04:21→20:04)
[2019-07-29] MEDS: HONEY 1 APPL/ML TUBE TP SCH (04:52)
[2019-07-29 05:04] LABS: BASOPHILS % (AUTO) 0.1 % (0.0-5.0); EOSINOPHILS % (AUTO) 0.4 % (0.0-8.0); HEMATOCRIT 26.4 % (42-54); LYMPHOCYTES % (AUTO) 11.4 % (21.0-51.0); MEAN CORPUSCULAR HGB CONC 31.4 g/dL (32.0-36.0); MEAN CORPUSCULAR VOLUME 95.3 fL (79-99); MONOCYTES % (AUTO) 4.5 % (3.0-13.0); NUCLEATED RED BLOOD CELLS 0.2 % (0.0-0.19); PLATELET COUNT (AUTO) 242 K/uL (130-400); RED BLOOD CELL COUNT(AUTO) 2.77 MIL/uL (4.50-6.20); RED CELL DISTRIBUTION WIDTH 17.8 % (11.0-15.5); WHITE BLOOD COUNT (AUTO) 8.3 K/uL (4.8-10.8)
[2019-07-29 05:19] LABS: ALBUMIN 1.1 g/dL (3.5-5.0); BILIRUBIN,TOTAL 0.5 mg/dL (0.2-1.0); CREATININE 0.6 mg/dL (0.5-1.5); MAGNESIUM 1.7 mg/dL (1.80-2.40); TOTAL PROTEIN, SERUM 5.7 g/dL (6.0-8.3)
[2019-07-29 05:27] LABS: POTASSIUM 2.9 mmol/L (3.5-5.1)
[2019-07-29] MEDS: POTASSIUM CHLORIDE 20MEQ/100ML 100 ML IV PRN ×3 (05:52→20:04)
[2019-07-29] MEDS: MAGNESIUM 2GM PREMIX 50ML 50 ML IV PRN (05:53)
[2019-07-29] MEDS: IRON SUCROSE COMPLEX 100 MG in SODIUM CHLORIDE 0.9% 50 ML IV SCH (08:29)
[2019-07-29] MEDS: THIAMINE HCL 100 MG TABLET PO SCH (08:30)
[2019-07-29] MEDS: FAMOTIDINE/PF 20 MG/2 ML VIAL IV SCH (08:30)
[2019-07-29] MEDS: ASCORBIC ACID 500 MG TAB PO SCH (08:30)
[2019-07-29] MEDS: ZINC SULFATE 220 CAPSULE PO SCH (08:30)
[2019-07-29] MEDS: FOLIC ACID/VITAMIN B COMP W-C 1 CAP TAB PO SCH (08:30)
[2019-07-29] MEDS: DRONABINOL 2.5 MG CAP PO SCH (09:00)
[2019-07-29] MEDS: FERROUS SULFATE 325 MG TABLET.DR PO SCH ×2 (09:00→19:24)
[2019-07-29 19:13] LABS: MAGNESIUM 2.3 mg/dL (1.80-2.40); POTASSIUM 3.3 mmol/L (3.5-5.1)
[2019-07-30] MEDS: HONEY 1 APPL/ML TUBE TP SCH (03:39)
[2019-07-30 04:00] VITALS: BP 131/70
[2019-07-30] MEDS: ZOSYN 3.375GM+NS 50ML 50 ML IV SCH ×3 (04:12→19:09)
[2019-07-30 05:22] LABS: HEMATOCRIT 28.9 % (42-54); MEAN CORPUSCULAR HEMOGLOBIN 29.4 pg (27.0-33.0); MEAN CORPUSCULAR HGB CONC 31.1 g/dL (32.0-36.0); MEAN CORPUSCULAR VOLUME 94.4 fL (79-99); PLATELET COUNT (AUTO) 251 K/uL (130-400); RED BLOOD CELL COUNT(AUTO) 3.06 MIL/uL (4.50-6.20); RED CELL DISTRIBUTION WIDTH 18.1 % (11.0-15.5); WHITE BLOOD COUNT (AUTO) 8.2 K/uL (4.8-10.8)
[2019-07-30 05:36] LABS: BAND NEUTROPHILS % (MANUAL) 6 % (0-2); LYMPHOCYTES % (MANUAL) 11 % (22-44); MONOCYTES % (MANUAL) 3 % (2-9); SEGMENTED NEUTROPHILS % 80 % (40-70)
[2019-07-30 05:37] LABS: ALBUMIN 1.2 g/dL (3.5-5.0); BILIRUBIN,TOTAL 0.5 mg/dL (0.2-1.0); CREATININE 0.7 mg/dL (0.5-1.5); MAN.DIFF COMMENT-IMPRESSION MANUAL DIFFERENTIAL; PLATELET MORPHOLOGY COMMENT ADEQUATE; POTASSIUM 3.2 mmol/L (3.5-5.1); TOTAL PROTEIN, SERUM 5.7 g/dL (6.0-8.3)
[2019-07-30 05:38] LABS: % IRON SATURATION 35.2 % (30-44)
[2019-07-30] MEDS: POTASSIUM CHLORIDE 20MEQ/100ML 100 ML IV PRN ×3 (06:09→11:27)
[2019-07-30 07:39] VITALS: BP 130/73
[2019-07-30] MEDS: FAMOTIDINE/PF 20 MG/2 ML VIAL IV SCH (09:10)
[2019-07-30] MEDS: ASCORBIC ACID 500 MG TAB PO SCH (09:10)
[2019-07-30] MEDS: FOLIC ACID/VITAMIN B COMP W-C 1 CAP TAB PO SCH (09:10)
[2019-07-30] MEDS: THIAMINE HCL 100 MG TABLET PO SCH (09:10)
[2019-07-30] MEDS: FERROUS SULFATE 325 MG TABLET.DR PO SCH ×2 (09:10→19:09)
[2019-07-30] MEDS: ZINC SULFATE 220 CAPSULE PO SCH (09:10)
[2019-07-30] MEDS: IRON SUCROSE COMPLEX 100 MG in SODIUM CHLORIDE 0.9% 50 ML IV SCH (09:11)
[2019-07-30 11:15] VITALS: BP 118/59
[2019-07-30] MEDS: DRONABINOL 2.5 MG CAP PO SCH (11:33)
[2019-07-30 16:26] VITALS: BP 123/61
[2019-07-30] MEDS: HYDROMORPHONE 1 MG/1 ML AMP IVP PRN ×2 (19:09→23:19)
[2019-07-30 19:30] VITALS: BP 123/64
[2019-07-30 23:44] VITALS: BP 127/64
[2019-07-31] VITALS (24 sets, daily range): BP systolic 102–129; BP diastolic 53–82
[2019-07-31] MEDS: HYDROMORPHONE 1 MG/1 ML AMP IVP PRN ×4 (02:27→22:33)
[2019-07-31] MEDS: ZOSYN 3.375GM+NS 50ML 50 ML IV SCH ×3 (03:50→19:38)
[2019-07-31] MEDS: HONEY 1 APPL/ML TUBE TP SCH (03:51)
[2019-07-31 05:23] LABS: BASOPHILS % (AUTO) 0.3 % (0.0-5.0); EOSINOPHILS % (AUTO) 0.5 % (0.0-8.0); HEMATOCRIT 25.2 % (42-54); LYMPHOCYTES % (AUTO) 12.9 % (21.0-51.0); MEAN CORPUSCULAR HEMOGLOBIN 29.6 pg (27.0-33.0); MEAN CORPUSCULAR HGB CONC 30.6 g/dL (32.0-36.0); MEAN CORPUSCULAR VOLUME 96.9 fL (79-99); MONOCYTES % (AUTO) 4.4 % (3.0-13.0); PLATELET COUNT (AUTO) 320 K/uL (130-400); WHITE BLOOD COUNT (AUTO) 11.8 K/uL (4.8-10.8)
[2019-07-31 05:45] LABS: ALBUMIN 1.2 g/dL (3.5-5.0); BILIRUBIN,TOTAL 0.4 mg/dL (0.2-1.0); CREATININE 0.6 mg/dL (0.5-1.5); POTASSIUM 3.2 mmol/L (3.5-5.1); TOTAL PROTEIN, SERUM 5.9 g/dL (6.0-8.3)
[2019-07-31] MEDS: POTASSIUM CHLORIDE 20MEQ/100ML 100 ML IV PRN ×2 (05:53→09:53)
[2019-07-31] MEDS: FERROUS SULFATE 325 MG TABLET.DR PO SCH ×2 (09:00→19:38)
[2019-07-31] MEDS: DRONABINOL 2.5 MG CAP PO SCH (09:00)
[2019-07-31] MEDS: ZINC SULFATE 220 CAPSULE PO SCH (09:00)
[2019-07-31] MEDS: THIAMINE HCL 100 MG TABLET PO SCH (09:00)
[2019-07-31] MEDS: FOLIC ACID/VITAMIN B COMP W-C 1 CAP TAB PO SCH (09:00)
[2019-07-31] MEDS: ASCORBIC ACID 500 MG TAB PO SCH (09:00)
[2019-07-31] MEDS: FAMOTIDINE/PF 20 MG/2 ML VIAL IV SCH (09:52)
[2019-07-31] MEDS: IRON SUCROSE COMPLEX 100 MG in SODIUM CHLORIDE 0.9% 50 ML IV SCH (09:53)
--- NOTE | 2019-07-31 11:23 | NUR ---
DR PLAZA PAGED TO INFORM OF NEW CONSULT; PENDING CALL BACK
--- NOTE | 2019-07-31 13:36 | NUR ---
DR PLAZA HERE TO SEE PATIENT BUT PT HAS LEFT TO SURGERY; HE STATED HE BELIEVED PT HAS HAD A BONE BIOPSY DONE ALREADY POSSIBLY AT [facility] AND HE WILL CHECK FOR THAT AND CALL ME WITH ORDERS IF NECESSARY.
[2019-07-31] MEDS ORDERED: MIDAZOLAM HCL 1 MG/ML 2ML VIAL ONE (13:39)
[2019-07-31] MEDS ORDERED: KETAMINE 50MG/ML SYRINGE 50 MG/ML DISP.SYRIN IV ONE (13:39)
--- NOTE | 2019-07-31 14:00 | NUR ---
WAITING ON SPECIFIC WOUND CARE ORDERS/ DESCRIPTION TO SEND TO WNR TO SUBMIT TO INSURANCE Addendum: 07/31/19 at 1839 by TARYN CRONIN RN CM Amended: Links added.
--- NOTE | 2019-07-31 15:30 | NUR ---
RECEIVED PT POST OP, NO C/O PAIN, ORIENTED TO PERSON ONLY WHICH IS PT'S NORM, PT WAS SOILED WITH A BOWEL MOVEMENT SO HE WAS CLEANED UP AND HIS DRESSING TO COCCYX REMAINED CLEAN DRY AND INTACT, NO BLEEDING NOTED.
[2019-08-01 00:08] VITALS: BP_SYST 105; BP_SYST 110; BP_DIAS 64
[2019-08-01] MEDS: HYDROMORPHONE 1 MG/1 ML AMP IVP PRN ×4 (01:22→23:39)
[2019-08-01 04:04] VITALS: BP 135/74
[2019-08-01] MEDS: HONEY 1 APPL/ML TUBE TP SCH (04:15)
[2019-08-01] MEDS: ZOSYN 3.375GM+NS 50ML 50 ML IV SCH ×3 (04:15→19:46)
[2019-08-01 05:59] LABS: BASOPHILS % (AUTO) 0.4 % (0.0-5.0); EOSINOPHILS % (AUTO) 0.6 % (0.0-8.0); HEMATOCRIT 26.2 % (42-54); LYMPHOCYTES % (AUTO) 13.5 % (21.0-51.0); MEAN CORPUSCULAR HEMOGLOBIN 30.3 pg (27.0-33.0); MEAN CORPUSCULAR HGB CONC 30.5 g/dL (32.0-36.0); MEAN CORPUSCULAR VOLUME 99.2 fL (79-99); MONOCYTES % (AUTO) 5.3 % (3.0-13.0); NEUTROPHILS % (AUTO) 79.4 % (40.0-77.0); PLATELET COUNT (AUTO) 322 K/uL (130-400); RED BLOOD CELL COUNT(AUTO) 2.64 MIL/uL (4.50-6.20); RED CELL DISTRIBUTION WIDTH 18.4 % (11.0-15.5); WHITE BLOOD COUNT (AUTO) 10.6 K/uL (4.8-10.8)
[2019-08-01 06:29] LABS: MAGNESIUM 1.8 mg/dL (1.80-2.40); POTASSIUM 3.1 mmol/L (3.5-5.1)
[2019-08-01] MEDS: POTASSIUM CHLORIDE 20MEQ/100ML 100 ML IV PRN (06:32)
[2019-08-01] MEDS: MAGNESIUM 2GM PREMIX 50ML 50 ML IV PRN (06:33)
[2019-08-01 07:55] VITALS: BP 129/73
[2019-08-01] MEDS ORDERED: POTASSIUM CHLORIDE 20 MEQ ERTAB PO SCH (08:15)
[2019-08-01] MEDS: FERROUS SULFATE 325 MG TABLET.DR PO SCH ×2 (08:45→19:45)
[2019-08-01] MEDS: ASCORBIC ACID 500 MG TAB PO SCH (08:45)
[2019-08-01] MEDS: THIAMINE HCL 100 MG TABLET PO SCH (08:45)
[2019-08-01] MEDS: ZINC SULFATE 220 CAPSULE PO SCH (08:45)
[2019-08-01] MEDS: FOLIC ACID/VITAMIN B COMP W-C 1 CAP TAB PO SCH (08:46)
[2019-08-01] MEDS: IRON SUCROSE COMPLEX 100 MG in SODIUM CHLORIDE 0.9% 50 ML IV SCH (08:46)
[2019-08-01] MEDS: FAMOTIDINE/PF 20 MG/2 ML VIAL IV SCH (08:46)
[2019-08-01] MEDS: DRONABINOL 2.5 MG CAP PO SCH (09:00)
--- NOTE | 2019-08-01 10:30 | NUR ---
CASE CONFERENCE COMPLETED PER NURSE, Pt COUGHING WITH ALL P.O. INTAKE AND PRESENTS WITH WET VOCAL QUALITY. RN CLINICAL DOCUMENTATION COORDINATED WITH NURSE AND RECOMMENDED MBSS AT THIS TIME. Addendum: 08/01/[address] SLADE DIAZ Amended: Links added.
[2019-08-01 11:31] VITALS: BP 136/67
--- NOTE | 2019-08-01 12:00 | NUR ---
MBSS COMPLETED. RECOMMEND FLOOR ASSEMBLER ALTERNATE MEANS OF NUTRITION/HYDRATION. Pt PRESENTS WITH SEVERE TO PROFOUND ORAL DYSPHAGIA PLACING PATIENT AT HIGH RISK FOR ASPIRATION. AUTOMOTIVE BRAKE ADJUSTER COORDINATED CARE AND RECOMMENDATIONS WITH NURSE LINDSEY. Addendum: 08/01/[address] JOE Amended: Links added.
[2019-08-01] MEDS: DEXTROSE 5 % AND 0.9 % NACL 1,000 ML IV SCH (16:25)
[2019-08-01 16:27] VITALS: BP 124/71
--- NOTE | 2019-08-01 16:44 | NUR ---
RD FOLLOW UP Pt coughing with all textures, Pending MBSS as per ST. Pt with Sacrococcygeal ulcer. Pt with PCM. Recommend Altered means nutrition. RD to follow up. Addendum: 08/01/19 at [address] Amended: Links added.
[2019-08-01 20:04] VITALS: BP 103/55
[2019-08-02] VITALS (7 sets, daily range): BP systolic 115–140; BP diastolic 56–77
[2019-08-02] MEDS: HYDROMORPHONE 1 MG/1 ML AMP IVP PRN (02:45)
[2019-08-02] MEDS: ZOSYN 3.375GM+NS 50ML 50 ML IV SCH ×3 (04:32→21:29)
[2019-08-02 04:54] LABS: HEMATOCRIT 23.7 % (42-54); MEAN CORPUSCULAR HEMOGLOBIN 29.5 pg (27.0-33.0); MEAN CORPUSCULAR VOLUME 98.3 fL (79-99); RED BLOOD CELL COUNT(AUTO) 2.41 MIL/uL (4.50-6.20); RED CELL DISTRIBUTION WIDTH 18.1 % (11.0-15.5); WHITE BLOOD COUNT (AUTO) 9.2 K/uL (4.8-10.8)
[2019-08-02 05:09] LABS: CREATININE 0.7 mg/dL (0.5-1.5); MAGNESIUM 1.9 mg/dL (1.80-2.40)
[2019-08-02 05:17] LABS: POTASSIUM 2.9 mmol/L (3.5-5.1)
[2019-08-02] MEDS: HONEY 1 APPL/ML TUBE TP SCH (05:21)
[2019-08-02] MEDS: POTASSIUM CHLORIDE 20MEQ/100ML 100 ML IV PRN ×2 (05:22→14:09)
[2019-08-02] MEDS: DEXTROSE 5 % AND 0.9 % NACL 1,000 ML IV SCH ×2 (06:36→21:03)
[2019-08-02] MEDS: FAMOTIDINE/PF 20 MG/2 ML VIAL IV SCH (08:11)
[2019-08-02] MEDS: FERROUS SULFATE 325 MG TABLET.DR PO SCH ×2 (08:12→21:00)
[2019-08-02] MEDS: FOLIC ACID/VITAMIN B COMP W-C 1 CAP TAB PO SCH (08:13)
[2019-08-02] MEDS: ZINC SULFATE 220 CAPSULE PO SCH (08:13)
[2019-08-02] MEDS: ASCORBIC ACID 500 MG TAB PO SCH (08:13)
[2019-08-02] MEDS: THIAMINE HCL 100 MG TABLET PO SCH (08:13)
[2019-08-02] MEDS: IRON SUCROSE COMPLEX 100 MG in SODIUM CHLORIDE 0.9% 50 ML IV SCH (08:24)
[2019-08-02] MEDS ORDERED: LIDOCAINE HCL-MPF 1% 2ML VIAL IJ PRN (08:30)
[2019-08-02] MEDS: DRONABINOL 2.5 MG CAP PO SCH (09:00)
--- NOTE | 2019-08-02 09:07 | NUR ---
MEDS PT REFUSED MED. PT WILL OPEN HE'S EYES BUT IS NOT WANTING TO OPEN MOUTH TO SWALLOW MED.
--- NOTE | 2019-08-02 09:20 | NUR ---
CASE CONFERENCE COMPLETED SPICE CLEANER COORDINATED WITH NURSE AMERICA AND DAQUAN ABOUT MBSS RESULTS AND RECOMMENDATIONS. Pt CURRENTLY NPO WITH A RECOMMENDATION FOR A VICE PRESIDENT AND PORTFOLIO MANAGER ALTERNATE MEANS OF NUTRITION/HYDRATION. Pt PRESENTS WITH SEVERE TO PROFOUND ORAL DYSPHAGIA DUE TO FOOD AGNOSIA. Pt WILL HOLD BOLUS/FOOD IN MOUTH AND DOES NOT INITIATE SWALLOW TRIGGER PLACING HIM AT HIGH RISK FOR ASPIRATION AT THIS TIME. Addendum: 08/02/[address] SLADE DIAZ Amended: Links added.
[2019-08-02] MEDS: MAGNESIUM 2GM PREMIX 50ML 50 ML IV PRN (10:38)
--- NOTE | 2019-08-02 11:04 | NUR ---
DR. LEENA STERN PAGED TO SEE PATIENT FOR PEG TUB PER DR. STRANGE
--- NOTE | 2019-08-02 11:20 | NUR ---
RD UPDATE - TPN RECOMMENDATIONS Recommend Initiate low rate Clinimix E 5/15% @30mls/hr. Will reassess to advance rate after 24 hours. Pt will have TPN pending PEG placement, as per RN. Pt with low BMI 15.4. Failed MBSS, holding bolus/high aspiration risk as per ST. RD to follow up with Tube Feeding Recommendations.
[2019-08-02] MEDS ORDERED: ACETAMINOPHEN 650 MG SUPPOSITORY RC PRN (11:45)
[2019-08-02 12:23] LABS: ABG BASE EXCESS -5.6 mmol/L (-2.0-3.0); ABG HCO3 17.2 mmol/L (21.0-28.0); ABG OXYGEN SATURATION 94.2 % (95.0-99.0); ABG PCO2 24 mmHg (35-48)
--- NOTE | 2019-08-02 12:45 | NUR ---
CHART REVIEWED, DCP DISCUSSED Merary HOWARD AND DR. Henry Addendum: 08/02/19 at 1246 by TARYN CRONIN RN CM Amended: Links added.
[2019-08-02] MEDS ORDERED: VANCOMYCIN PROTOCOL PER PHARMACY IV SCH (14:00)
[2019-08-02] MEDS ORDERED: VANCOMYCIN 1GM+NS 250ML 250 ML IV ONE (15:00)
[2019-08-02] MEDS ORDERED: M.V.I. IV [ADULT] 10 ML in CLINIMIX E 5%-15% 2,000 ML IV SCH (16:00)
[2019-08-02 17:20] LABS: APPEARANCE,URINE Clear (CLEAR); BILIRUBIN,URINE Negative (NEGATIVE); COLOR,URINE Yellow (YELLOW); GLUCOSE, URINE (UA) Negative (NEGATIVE); KETONES,URINE Negative (NEGATIVE); LEUKOCYTE ESTERASE ,URINE Negative (NEGATIVE); NITRATE,URINE Negative (NEGATIVE); OCCULT BLOOD,URINE Negative (NEGATIVE); PROTEIN,URINE Negative (NEGATIVE); UROBILINOGEN,URINE 0.2 mg/dL (0.2-1.0)
[2019-08-02 18:39] LABS: INR 1.14 (0.85-1.15); PROTHROMBIN TIME 12.2 SEC (9.6-11.6)
[2019-08-02] MEDS: VANCOMYCIN 500MG+NS 100ML 100 ML IV SCH (21:29)
[2019-08-03] VITALS (22 sets, daily range): BP systolic 85–139; BP diastolic 44–83
[2019-08-03 01:01] LABS: CHLORIDE,URINE RANDOM 246 mmol/L (110-250); CREATININE,URINE RANDOM 33 mg/dL (30-135); POTASSIUM,URINE RANDOM 25 mmol/L (25-125); SODIUM,URINE RANDOM 214 mmol/l (40-220)
[2019-08-03] MEDS: HONEY 1 APPL/ML TUBE TP SCH (04:29)
[2019-08-03] MEDS: ZOSYN 3.375GM+NS 50ML 50 ML IV SCH ×3 (04:29→20:26)
[2019-08-03] MEDS: VANCOMYCIN 500MG+NS 100ML 100 ML IV SCH ×3 (05:15→22:00)
[2019-08-03 05:32] LABS: HEMATOCRIT 24.6 % (42-54); MEAN CORPUSCULAR HEMOGLOBIN 30.4 pg (27.0-33.0); MEAN CORPUSCULAR HGB CONC 31.3 g/dL (32.0-36.0); MEAN CORPUSCULAR VOLUME 97.2 fL (79-99); PLATELET COUNT (AUTO) 315 K/uL (130-400); RED BLOOD CELL COUNT(AUTO) 2.53 MIL/uL (4.50-6.20); RED CELL DISTRIBUTION WIDTH 17.8 % (11.0-15.5); WHITE BLOOD COUNT (AUTO) 9.1 K/uL (4.8-10.8)
[2019-08-03 06:25] LABS: ALBUMIN 1.1 g/dL (3.5-5.0); BILIRUBIN,TOTAL 0.4 mg/dL (0.2-1.0); CREATININE 0.6 mg/dL (0.5-1.5); MAGNESIUM 1.8 mg/dL (1.80-2.40); PHOSPHORUS 3.3 mg/dL (2.5-4.9); TOTAL PROTEIN, SERUM 6.1 g/dL (6.0-8.3)
[2019-08-03 06:27] LABS: POTASSIUM 2.5 mmol/L (3.5-5.1)
[2019-08-03] MEDS: POTASSIUM CHLORIDE 20MEQ/100ML 100 ML IV PRN ×3 (06:43→09:53)
[2019-08-03 06:52] LABS: LYMPHOCYTES % (MANUAL) 11 % (22-44); MAN.DIFF COMMENT-IMPRESSION MANUAL DIFFERENTIAL; MONOCYTES % (MANUAL) 4 % (2-9); PLATELET MORPHOLOGY COMMENT ADEQUATE; SEGMENTED NEUTROPHILS % 85 % (40-70)
[2019-08-03] MEDS: FERROUS SULFATE 325 MG TABLET.DR PO SCH ×2 (07:46→20:26)
[2019-08-03] MEDS: DRONABINOL 2.5 MG CAP PO SCH (07:46)
[2019-08-03] MEDS: THIAMINE HCL 100 MG TABLET PO SCH (07:46)
[2019-08-03] MEDS: ERGOCALCIFEROL (VITAMIN D2) 50,000 UNIT CAPSULE PO SCH (07:46)
[2019-08-03] MEDS: FOLIC ACID/VITAMIN B COMP W-C 1 CAP TAB PO SCH (07:46)
[2019-08-03] MEDS: ZINC SULFATE 220 CAPSULE PO SCH (07:47)
[2019-08-03] MEDS: ASCORBIC ACID 500 MG TAB PO SCH (07:47)
[2019-08-03] MEDS: FAMOTIDINE/PF 20 MG/2 ML VIAL IV SCH (08:42)
[2019-08-03] MEDS: MAGNESIUM 2GM PREMIX 50ML 50 ML IV PRN (08:44)
[2019-08-03] MEDS: THIAMINE HCL 100 MG/ML 2ML VIAL IVP SCH (08:45)
[2019-08-03] MEDS: IRON SUCROSE COMPLEX 100 MG in SODIUM CHLORIDE 0.9% 50 ML IV SCH (08:45)
[2019-08-03] MEDS: DEXTROSE 5 % AND 0.9 % NACL 1,000 ML IV SCH (12:27)
[2019-08-03] MEDS ORDERED: PROPOFOL 10 MG/ML 20ML VIAL IV ONE (15:15)
[2019-08-03] MEDS ORDERED: PHENYLEPHRINE HCL 10 MG/ML 1ML VIAL IV ONE (15:20)
[2019-08-03] MEDS ORDERED: SODIUM CHLORIDE 0.9% 10 ML VIAL ONE (15:20)
--- NOTE | 2019-08-03 16:15 | NUR ---
RE: WOUND CARE/WOUND CARE ORDERS/CONSULT [facility] HERE TO SEE RM317 AND NOTIFIED OF PATIENT CONSULT. [facility] SAID THEY WERE NOT AWARE OF ORDER. SHOWED NATASHA RIOS THE ORDER BUT PT IN PROCEDURE FOR PEG TUBE PLACEMENT AT THIS TIME AND NOTIFIED HER. WILL CONTINUE TO FOLLOW UP. Addendum: 08/03/19 at 1939 by AMERICA BOOKER RN [facility] REPORTS PT WAS SEEN PREVIOUSLY. INFORMED HER NEW ORDER POST SACRAL WOUND DEBRIDEMENT.NATASHA RIOS VERBALIZED UNDERSTANDING.
[2019-08-03] MEDS: HYDROMORPHONE 1 MG/1 ML AMP IVP PRN (19:05)
[2019-08-04 03:31] VITALS: BP 95/52
[2019-08-04] MEDS: DEXTROSE 5 % AND 0.9 % NACL 1,000 ML IV SCH ×2 (03:51→21:26)
[2019-08-04] MEDS: ZOSYN 3.375GM+NS 50ML 50 ML IV SCH ×3 (05:41→21:26)
[2019-08-04] MEDS: VANCOMYCIN 500MG+NS 100ML 100 ML IV SCH ×3 (05:51→22:00)
[2019-08-04 05:59] LABS: BASOPHILS % (AUTO) 0.1 % (0.0-5.0); EOSINOPHILS % (AUTO) 0.9 % (0.0-8.0); HEMATOCRIT 24.2 % (42-54); MEAN CORPUSCULAR HEMOGLOBIN 30.3 pg (27.0-33.0); MEAN CORPUSCULAR HGB CONC 30.6 g/dL (32.0-36.0); MEAN CORPUSCULAR VOLUME 99.2 fL (79-99); MONOCYTES % (AUTO) 4.4 % (3.0-13.0); PLATELET COUNT (AUTO) 293 K/uL (130-400); RED BLOOD CELL COUNT(AUTO) 2.44 MIL/uL (4.50-6.20); RED CELL DISTRIBUTION WIDTH 17.7 % (11.0-15.5); WHITE BLOOD COUNT (AUTO) 8.9 K/uL (4.8-10.8)
[2019-08-04] MEDS: HONEY 1 APPL/ML TUBE TP SCH (06:11)
[2019-08-04 06:16] LABS: CREATININE 0.7 mg/dL (0.5-1.5); INR 1.12 (0.85-1.15); MAGNESIUM 1.9 mg/dL (1.80-2.40); PARTIAL THROMBOPLASTIN TIME 43.4 SEC (26.3-35.5)
[2019-08-04] MEDS: POTASSIUM CHLORIDE 20MEQ/100ML 100 ML IV PRN ×2 (06:42→09:36)
[2019-08-04 08:00] VITALS: BP 129/65
[2019-08-04] MEDS ORDERED: POTASSIUM CHLORIDE 10% ELIXIR 20 MEQ/15 ML UDCUP GT SCH (08:15)
[2019-08-04] MEDS: THIAMINE HCL 100 MG TABLET PO SCH (09:33)
[2019-08-04] MEDS: ASCORBIC ACID 500 MG TAB PO SCH (09:33)
[2019-08-04] MEDS: FOLIC ACID/VITAMIN B COMP W-C 1 CAP TAB PO SCH (09:33)
[2019-08-04] MEDS: FERROUS SULFATE 325 MG TABLET.DR PO SCH ×2 (09:33→21:27)
[2019-08-04] MEDS: ZINC SULFATE 220 CAPSULE PO SCH (09:33)
[2019-08-04] MEDS: LANSOPRAZOLE 15 MG SOLU TAB GT SCH (09:33)
[2019-08-04] MEDS: IRON SUCROSE COMPLEX 100 MG in SODIUM CHLORIDE 0.9% 50 ML IV SCH (09:34)
[2019-08-04] MEDS: FAMOTIDINE/PF 20 MG/2 ML VIAL IV SCH (09:34)
[2019-08-04] MEDS: THIAMINE HCL 100 MG/ML 2ML VIAL IVP SCH (09:34)
[2019-08-04] MEDS: DRONABINOL 2.5 MG CAP PO SCH (09:55)
[2019-08-04 11:00] VITALS: BP 142/83
--- NOTE | 2019-08-04 11:13 | NUR ---
WNR READY FOR PATIENT WHEN PATIENT READY FOR DC UPDATES SENT TO [facility]- NEED STOP DATE FOR ABX/RECS FROM Y[facility] COPELAND REC AND DC ORDER IF READY- FROM DR. Elaine CM TO FOLLOWUP W PMD AND PRIMARY NURSE Addendum: 08/04/19 at 1117 by TARYN CRONIN RN CM Amended: Links added.
--- NOTE | 2019-08-04 11:45 | NUR ---
PROCEDURE PATIENT SCHEDULED FOR BONE MARROW BIOPSY/ASPIRATION. IMAGES TAKEN AND REVIEWED BY DR Jude BRANNON. BUTTOCK WOUND OVER SITE OF BONE MARROW BX. UNABLE TO PERFORM BIOPSY AND PROCEDURE CANCELED. PROCEDURE OUTCOME REPORTED TO NATASHA STRONG AND PATIENT TRANSPORTED TO [facility] VIA BED AT 1145.
--- NOTE | 2019-08-04 14:32 | NUR ---
RD FOLLOW UP Pt s/p PEG placement, TPN discontinued. Tube feeding initiated 08/03/19 evening. New Tube Feeding Recommendations placed in Pt chart. Recommend Continue Jevity 1.5, increase as tolerated by 5mL every 5 hours to goal Tube feeding Goal: 40mls/hr (960mL, 1440mL, 61gm Protein, 730mL Free H2O). Recommend flushes: [address] to continue to monitor for tolerance, residuals, Pt weight. Please notify as additional nutrition concerns arise. Thank you. Addendum: 08/04/19 at [address] Amended: Links added.
[2019-08-04 16:00] VITALS: BP 138/74
--- NOTE | 2019-08-04 17:18 | NUR ---
[facility] consult Patient assessed as ordered. Wound care recommendations submitted. Patient on air bed. Nutritional consult already in place. Addendum: 08/04/19 at 1719 by BLANCA HAZEL RN/ Amended: Links added.
[2019-08-04 19:00] VITALS: BP 123/60
[2019-08-04] MEDS: ACETAMINOPHEN ELIXIR 650 MG/20.3 ML UDCUP PEG SCH (21:26)
[2019-08-04] MEDS: POTASSIUM CHLORIDE 10% ELIXIR 20 MEQ/15 ML UDCUP PO SCH (21:31)
--- NOTE | 2019-08-04 22:38 | NUR ---
VANCO TROUGH 22.9 VANCO TROUGH REPORTED FROM LAB. HELD THIS DOSE. PER ISAAC MANDUJANO FOR PHARMACY TO DOSE. RESULTS FAXED OVER TO PHARMACY
[2019-08-05] VITALS: BP 105/59
[2019-08-05] MEDS: ACETAMINOPHEN ELIXIR 650 MG/20.3 ML UDCUP PEG SCH ×3 (02:40→20:55)
[2019-08-05] MEDS: HYDROMORPHONE 1 MG/1 ML AMP IVP PRN (02:41)
[2019-08-05 03:42] VITALS: BP 95/51
[2019-08-05] MEDS: ZOSYN 3.375GM+NS 50ML 50 ML IV SCH ×3 (04:35→20:54)
[2019-08-05] MEDS: HONEY 1 APPL/ML TUBE TP SCH (05:00)
--- NOTE | 2019-08-05 05:11 | NUR ---
DRESSING CHANGES DRESSING CHANGES MADE L/R HIP, BILAT HEELS, AND SACRUM. MEDIHONEY, AND IODOSORB NOT AVAILABLE TO APPLY. PICC DRESSING CHANGED USING STERILE TECHNIQUE, PT ERENDIRA WELL.
--- NOTE | 2019-08-05 05:16 | NUR ---
WOUND PICTURES TAKEN AND PLACED IN CHART.
[2019-08-05 05:37] LABS: BASOPHILS % (AUTO) 0.1 % (0.0-5.0); EOSINOPHILS % (AUTO) 1.9 % (0.0-8.0); LYMPHOCYTES % (AUTO) 8.6 % (21.0-51.0); MEAN CORPUSCULAR HEMOGLOBIN 30.6 pg (27.0-33.0); MEAN CORPUSCULAR HGB CONC 30.8 g/dL (32.0-36.0); MEAN CORPUSCULAR VOLUME 99.2 fL (79-99); MONOCYTES % (AUTO) 6.2 % (3.0-13.0); NEUTROPHILS % (AUTO) 82.6 % (40.0-77.0); PLATELET COUNT (AUTO) 296 K/uL (130-400); RED BLOOD CELL COUNT(AUTO) 2.42 MIL/uL (4.50-6.20); RED CELL DISTRIBUTION WIDTH 17.7 % (11.0-15.5); WHITE BLOOD COUNT (AUTO) 9.6 K/uL (4.8-10.8)
[2019-08-05 05:46] LABS: CREATININE 0.6 mg/dL (0.5-1.5); MAGNESIUM 1.7 mg/dL (1.80-2.40); POTASSIUM 3.8 mmol/L (3.5-5.1)
[2019-08-05 07:30] VITALS: BP 102/67
[2019-08-05] MEDS: FAMOTIDINE/PF 20 MG/2 ML VIAL IV SCH (08:49)
[2019-08-05] MEDS: THIAMINE HCL 100 MG/ML 2ML VIAL IVP SCH (08:49)
[2019-08-05] MEDS: IRON SUCROSE COMPLEX 100 MG in SODIUM CHLORIDE 0.9% 50 ML IV SCH (08:54)
[2019-08-05] MEDS: POTASSIUM CHLORIDE 10% ELIXIR 20 MEQ/15 ML UDCUP PO SCH ×2 (08:56→20:55)
[2019-08-05] MEDS: FOLIC ACID/VITAMIN B COMP W-C 1 CAP TAB PO SCH (08:56)
[2019-08-05] MEDS: ZINC SULFATE 220 CAPSULE PO SCH (08:56)
[2019-08-05] MEDS: ASCORBIC ACID 500 MG TAB PO SCH (08:56)
[2019-08-05] MEDS: LANSOPRAZOLE 15 MG SOLU TAB GT SCH (08:56)
[2019-08-05] MEDS: FERROUS SULFATE 325 MG TABLET.DR PO SCH ×2 (08:56→20:55)
[2019-08-05] MEDS: THIAMINE HCL 100 MG TABLET PO SCH (08:57)
[2019-08-05 11:00] VITALS: BP 108/58
[2019-08-05] MEDS: DEXTROSE 5 % AND 0.9 % NACL 1,000 ML IV SCH (11:03)
--- NOTE | 2019-08-05 11:30 | NUR ---
cm note call made to Ana Rosa with WNR snf, and states pt is approved and can be transferred to WNR when ready. updated Kale primary nurse. per Dr Gross states [facility] dc tomorrow or wednesday.
[2019-08-05] MEDS: CADEXOMER IODINE 40 GM GEL TP SCH (11:54)
[2019-08-05 16:00] VITALS: BP 117/55
[2019-08-05 19:00] VITALS: BP 119/71
[2019-08-06] VITALS: BP 106/68
[2019-08-06] MEDS: HYDROMORPHONE 1 MG/1 ML AMP IVP PRN ×2 (00:21→20:46)
[2019-08-06] MEDS: DEXTROSE 5 % AND 0.9 % NACL 1,000 ML IV SCH ×2 (02:11→17:59)
[2019-08-06 03:41] VITALS: BP 110/60
[2019-08-06] MEDS: ZOSYN 3.375GM+NS 50ML 50 ML IV SCH ×3 (03:57→20:33)
[2019-08-06] MEDS: ACETAMINOPHEN ELIXIR 650 MG/20.3 ML UDCUP PEG SCH ×3 (03:58→20:33)
[2019-08-06] MEDS: HONEY 1 APPL/ML TUBE TP SCH (05:13)
[2019-08-06] MEDS: CADEXOMER IODINE 40 GM GEL TP SCH (05:13)
[2019-08-06 05:27] LABS: HEMATOCRIT 24.3 % (42-54)
[2019-08-06 05:37] LABS: MAGNESIUM 1.7 mg/dL (1.80-2.40); POTASSIUM 3.5 mmol/L (3.5-5.1)
[2019-08-06] MEDS: POTASSIUM CHLORIDE 20MEQ/100ML 100 ML IV PRN (07:24)
[2019-08-06 08:00] VITALS: BP_SYST 101; BP_SYST 113; BP_DIAS 56; BP_DIAS 81
[2019-08-06] MEDS: FAMOTIDINE/PF 20 MG/2 ML VIAL IV SCH (09:00)
[2019-08-06] MEDS: POTASSIUM CHLORIDE 10% ELIXIR 20 MEQ/15 ML UDCUP PO SCH ×2 (10:32→20:32)
[2019-08-06] MEDS: FOLIC ACID/VITAMIN B COMP W-C 1 CAP TAB PO SCH (10:32)
[2019-08-06] MEDS: FERROUS SULFATE 325 MG TABLET.DR PO SCH ×2 (10:32→20:32)
[2019-08-06] MEDS: ASCORBIC ACID 500 MG TAB PO SCH (10:32)
[2019-08-06] MEDS: ZINC SULFATE 220 CAPSULE PO SCH (10:32)
[2019-08-06] MEDS: MAGNESIUM 2GM PREMIX 50ML 50 ML IV PRN (10:33)
[2019-08-06] MEDS: THIAMINE HCL 100 MG TABLET PO SCH (10:33)
[2019-08-06] MEDS: THIAMINE HCL 100 MG/ML 2ML VIAL IVP SCH (10:33)
[2019-08-06] MEDS: LANSOPRAZOLE 15 MG SOLU TAB GT SCH (10:33)
[2019-08-06 12:00] VITALS: BP 119/66
[2019-08-06] MEDS: IRON SUCROSE COMPLEX 100 MG in SODIUM CHLORIDE 0.9% 50 ML IV SCH (12:40)
[2019-08-06 16:00] VITALS: BP 115/64
[2019-08-06 19:00] VITALS: BP 109/97
--- NOTE | 2019-08-06 19:55 | NUR ---
CHANGE IN STATUS AREA DIRECTOR NOTIFIED NURSE OF PATIENT VITALS B/P 109/97, HR 124, RR 36, TEMP 99.4, O2 SAT 97% ON ROOM AIR. PATIENT AWAKE, EYES OPEN SPONTANEOUSLY, STARES AT NURSE BUT DIFFICULT TO GET A GOOD VERBAL RESPONSE FROM PATIENT. TELEMETRY CALLED, HR 130'S. ISAAC DENNEY MADE AWARE, IN PATIENT ROOM TO ASSESS PATIENT, NEW ORDERS RECEIVED AND CARRIED OUT (REFER TO EMR).
[2019-08-06 20:11] LABS: ABG BASE EXCESS -2.9 mmol/L (-2.0-3.0); ABG OXYGEN SATURATION 95.9 % (95.0-99.0); ABG PCO2 23 mmHg (35-48)
[2019-08-06] MEDS ORDERED: IPRATROPIUM/ALBUTEROL SULFATE 3 ML SOLUTION IH ONE (20:15)
--- NOTE | 2019-08-06 21:15 | NUR ---
UPDATE: PATIENT STATUS ABG, CXR, CT ABD/PELVIS, AND LAB RESULTS REPORTED TO ISAAC DENNEY. MOON SIGNS REASSESSED, HR 115, RR 21, O2 SAT 100% ON OXYGEN 2L/MIN VIA NC. PATIENT SEEMS MORE RESPONSIVE AT THIS TIME, ABLE TO INDICATE THAT HE IS IN PAIN (PRN MEDICATION ADMINISTERED, REFER TO eMAR), AND FOLLOW COMMANDS. WILL CONTINUE TO MONITOR.
[2019-08-06] MEDS ORDERED: IPRATROPIUM/ALBUTEROL SULFATE 3 ML SOLUTION IH SCH (21:30)
[2019-08-06] MEDS: IPRATROPIUM/ALBUTEROL SULFATE 3 ML SOLUTION IH SCH (23:08)
[2019-08-07] VITALS (7 sets, daily range): BP systolic 102–132; BP diastolic 62–76
[2019-08-07] MEDS: ZOSYN 3.375GM+NS 50ML 50 ML IV SCH ×2 (04:18→13:16)
[2019-08-07] MEDS: ACETAMINOPHEN ELIXIR 650 MG/20.3 ML UDCUP PEG SCH ×3 (04:19→19:00)
[2019-08-07] MEDS: CADEXOMER IODINE 40 GM GEL TP SCH (04:19)
[2019-08-07] MEDS: HONEY 1 APPL/ML TUBE TP SCH (04:19)
[2019-08-07 05:25] LABS: MAGNESIUM 1.9 mg/dL (1.80-2.40); POTASSIUM 3.9 mmol/L (3.5-5.1)
[2019-08-07] MEDS: IPRATROPIUM/ALBUTEROL SULFATE 3 ML SOLUTION IH SCH ×4 (06:36→23:28)
[2019-08-07] MEDS: DEXTROSE 5 % AND 0.9 % NACL 1,000 ML IV SCH (09:22)
[2019-08-07] MEDS: FAMOTIDINE/PF 20 MG/2 ML VIAL IV SCH (09:23)
[2019-08-07] MEDS: ZINC SULFATE 220 CAPSULE PO SCH (09:24)
[2019-08-07] MEDS: FOLIC ACID/VITAMIN B COMP W-C 1 CAP TAB PO SCH (09:24)
[2019-08-07] MEDS: FERROUS SULFATE 325 MG TABLET.DR PO SCH (09:24)
[2019-08-07] MEDS: THIAMINE HCL 100 MG TABLET PO SCH (09:24)
[2019-08-07] MEDS: LANSOPRAZOLE 15 MG SOLU TAB GT SCH (09:24)
[2019-08-07] MEDS: POTASSIUM CHLORIDE 10% ELIXIR 20 MEQ/15 ML UDCUP PO SCH (09:25)
[2019-08-07] MEDS: ASCORBIC ACID 500 MG TAB PO SCH (09:25)
[2019-08-07] MEDS: THIAMINE HCL 100 MG/ML 2ML VIAL IVP SCH (09:26)
[2019-08-07] MEDS: IRON SUCROSE COMPLEX 100 MG in SODIUM CHLORIDE 0.9% 50 ML IV SCH (09:49)
--- NOTE | 2019-08-07 13:31 | NUR ---
JEVITY PT SEEMS TO BE TOLERATING JEVITY, INCREASED FEEDING TO 30ML/HR
--- NOTE | 2019-08-07 14:10 | NUR ---
CM Note: WNR approval, EMS arranged CM spoke to Ana Rosa received covid assessment w/MD signature. Pt has approval. EMS arranged and faxed for today, primary nurse to call [facility] once pt ready to DC. Faxed EMS requet to [employer] [facility], confirmation received. Primary nurse aware. CM to cont to follow up.
--- NOTE | 2019-08-07 17:37 | NUR ---
[facility] GAVE REPORT TO JOVANNY TODD RN, TO TRANSFER TO [facility].
--- NOTE | 2019-08-07 19:45 | NUR ---
PT ALREADY DISCHARGE PT IN NO APPARENT DISTRESS
--- NOTE | 2019-08-08 00:15 | NUR ---
spoke phill singleton from [facility] , aware that ambulance stated they were on their way to pick patient up and take him to [facility].n.[facility].
--- NOTE | 2019-08-08 00:18 | NUR ---
ambulance here to transport pt to [facility]
[2019-08-10] MEDS ORDERED: ERGOCALCIFEROL (VITAMIN D2) 50,000 UNIT CAPSULE PO SCH (09:00)
== END 2019-08-08 00:32 | DRG 720 ==
LOC: EDH 16:30 → EDHIP 16:31 → 4BH 07-20 01:54 → 3CH 07-22 02:00 → 3DH 07-24 11:09
PROVIDERS: ADMIT Internal Medicine; ATTEND Internal Medicine
PROC: 30233N1 Transfusion of Nonautologous Red Blood Cells into Peripheral Vein, Percutaneous Approach (ICD-10-PCS; 2019-07-21)
PROC: 0JB70ZZ Excision of Back Subcutaneous Tissue and Fascia, Open Approach (ICD-10-PCS; principal; 2019-07-31 13:35)
PROC: 02HV33Z Insertion of Infusion Device into Superior Vena Cava, Percutaneous Approach (ICD-10-PCS; 2019-08-01)
PROC: 0DH63UZ Insertion of Feeding Device into Stomach, Percutaneous Approach (ICD-10-PCS; 2019-08-04)
DX: A41.9 Sepsis, unspecified organism (principal); R65.21 Severe sepsis with septic shock; J69.0 Pneumonitis due to inhalation of food and vomit; G93.40 Encephalopathy, unspecified; N17.9 Acute kidney failure, unspecified; E43 Unspecified severe protein-calorie malnutrition; L89.154 Pressure ulcer of sacral region, stage 4; Z87.891 Personal history of nicotine dependence; L89.324 Pressure ulcer of left buttock, stage 4; M62.82 Rhabdomyolysis; E87.0 Hyperosmolality and hypernatremia; E86.1 Hypovolemia; N39.0 Urinary tract infection, site not specified; L03.119 Cellulitis of unspecified part of limb; I10 Essential (primary) hypertension; D64.9 Anemia, unspecified; F32.9 Major depressive disorder, single episode, unspecified; E87.6 Hypokalemia; E78.1 Pure hyperglyceridemia; E83.42 Hypomagnesemia; F10.10 Alcohol abuse, uncomplicated; I87.8 Other specified disorders of veins; L89.609 Pressure ulcer of unspecified heel, unspecified stage; K70.30 Alcoholic cirrhosis of liver without ascites; L90.5 Scar conditions and fibrosis of skin; L97.419 Non-pressure chronic ulcer of right heel and midfoot with unspecified severity; L97.429 Non-pressure chronic ulcer of left heel and midfoot with unspecified severity; L97.519 Non-pressure chronic ulcer of other part of right foot with unspecified severity; L97.529 Non-pressure chronic ulcer of other part of left foot with unspecified severity; R62.7 Adult failure to thrive; R54 Age-related physical debility; R13.12 Dysphagia, oropharyngeal phase; B96.1 Klebsiella pneumoniae [K. pneumoniae] as the cause of diseases classified elsewhere; B96.5 Pseudomonas (aeruginosa) (mallei) (pseudomallei) as the cause of diseases classified elsewhere; Z68.1 Body mass index [BMI] 19.9 or less, adult; Z74.01 Bed confinement status
CPT/HCPCS: 36415; 36430; 36600; 43246; 70450; 71045; 73522; 73552; 73562; 74176; 74230; 76705; 80048; 80053; 80202; 81001; 81003; 82270; 82306; 82435; 82436; 82550; 82570; 82607; 82746; 82803; 82947; 82948; 83036; 83540; 83550; 83605; 83630; 83735; 83874; 83880; 83935; 84100; 84132; 84133; 84134; 84145; 84295; 84300; 84443; 84484; 85014; 85018; 85025; 85027; 85610; 85651; 85730; 86140; 86592; 86677; 86850; 86900; 86901; 86922; 87040; 87070; 87076; 87077; 87088; 87177; 87186; 87324; 87507; 92610; 92611; 93005; 93925; 93970; 94640; 94664; 97039; 99291; C1894; G0378; J0885; J1170; J1756; J1956; J2250; J2370; J2543; J2704; J3370; J3411; J3475; J3480; J3490; J7030; J7042; J7070; P9016; Q0167